=== PATIENT | female | born 2000 | race Caucasian/White ===

== ENCOUNTER 2023-09-27 10:21 | Emergency (ER) | payer OTHER ==
[~2023-09-27] VITALS: Ht 157.5 cm; Wt 87.3 kg
[2023-09-27] MEDS: ACETAMINOPHEN 500 MG TAB PO ONE (11:41)
[2023-09-27 13:06] LABS: BASO % 0.5 % (0.0-1.0); EOS # 0.1 10^3/uL (0.0-0.5); EOS % 1.5 % (0.0-3.0); HEMATOCRIT 37.4 % (36.0-47.0); LYMPH # 1.3 10^3/uL (1.5-5.0); LYMPH % 21.3 % (24.0-44.0); MEAN CORPUSCULAR HEMOGLOBIN 25.1 pg (27.0-33.0); MEAN CORPUSCULAR HGB CONC 32.1 g/dl (32.0-36.5); MEAN CORPUSCULAR VOLUME 78.2 fl (80.0-96.0); MONO # 0.3 10^3/uL (0.0-0.8); MONO % 5.4 % (2.0-8.0); NEUTROPHILS # 4.3 10^3/uL (1.5-8.5); NEUTROPHILS % 71.1 % (36.0-66.0); PLATELET COUNT, AUTOMATED 319 10^3/uL (150-450); RED BLOOD COUNT 4.78 10^6/uL (4.00-5.40); WHITE BLOOD COUNT 6.1 10^3/uL (4.0-10.0)
[2023-09-27 13:26] VITALS: BP 126/77; TEMP 97.8; O2SAT 100
[2023-09-27 13:28] LABS: BLOOD UREA NITROGEN 11 MG/DL (9-23); CALCIUM LEVEL 8.8 MG/DL (8.5-10.1); CARBON DIOXIDE LEVEL 22 MMOL/L (20-31); CHLORIDE LEVEL 110 MMOL/L (98-107); CREATININE FOR GFR 0.69 MG/DL (0.55-1.30); GLUCOSE, FASTING 88 MG/DL (60-100); POTASSIUM SERUM 4.1 MMOL/L (3.5-5.1); SODIUM LEVEL 139 MMOL/L (136-145)
== END 2023-09-27 13:59 | disposition home or self-care (01) ==
LOC: M ED 10:21
DX: M54.50 Low back pain, unspecified (principal); Z88.5 Allergy status to narcotic agent

== ENCOUNTER → 2024-02-03 | Outpatient (REF) | payer OTHER ==
[2024-02-03 20:02] LABS: C REACTIVE PROTEIN QUANTITATIV < 0.40 MG/DL (<1.0)
[2024-02-03 20:04] LABS: FERRITIN 4.7 NG/ML (7.3-270.7); IRON (FE) 32 UG/DL (50-170); PERCENT SATURATION 7.7 % (13.2-45.0); TOTAL IRON BINDING CAPACITY 415 UG/DL (250-425)
== END ==
LOC: M LAB REF 12:15
PROVIDERS: ATTEND Nurse Practitioner Family
DX: R69 Illness, unspecified (principal); E61.1 Iron deficiency

== ENCOUNTER → 2024-04-17 | Outpatient (REF) | payer OTHER ==
[2024-04-17 12:05] LABS: Trichomonas vaginalis (AMP) NOT DETECTED (NEGATIVE)
[2024-04-17 12:28] LABS: GC DNA AMPLIFICATION NEGATIVE (NEGATIVE)
== END ==
LOC: M SFHCWAGY 09:56
PROVIDERS: ATTEND Nurse Practitioner Family
DX: N94.10 Unspecified dyspareunia (principal)

== ENCOUNTER → 2024-08-28 | Outpatient (REF) | payer OTHER ==
[~2024-08-28] MED LIST: DEBL1TAB; HYDR-643; PHOS1TAB3 PO; SERT-141 PO
[2024-08-28 15:19] LABS: FOLATE 20.3 NG/ML (>5.4); THYROID STIMULATING HORMONE 3.513 uIU/ML (0.55-4.78)
== END ==
LOC: M LAB REF 14:11
PROVIDERS: ATTEND Nurse Practitioner Family
DX: R51.9 Headache, unspecified (principal)

== ENCOUNTER → 2024-08-30 | Outpatient (REF) | payer OTHER ==
[2024-08-30 15:53] LABS: APPEARANCE, URINE HAZY (CLEAR); BACTERIA, URINE AUTO NEGATIVE (NEGATIVE); BILIRUBIN, URINE AUTO NEGATIVE (NEGATIVE); BLOOD, URINE BLOOD NEGATIVE (NEGATIVE); COLOR, URINE YELLOW (YELLOW); GLUCOSE, URINE (UA) AUTO NEGATIVE (NEGATIVE); KETONE, URINE AUTO NEGATIVE (NEGATIVE); LEUKOCYTE ESTERASE, URINE AUTO NEGATIVE (NEGATIVE); MUCUS, URINE SMALL (NEGATIVE); NITRITE, URINE AUTO NEGATIVE (NEGATIVE); PROTEIN, URINE AUTO NEGATIVE (NEGATIVE); RBC, URINE AUTO 1 /HPF (0-3); SPECIFIC GRAVITY URINE AUTO 1.015 (1.002-1.035); SQUAMOUS EPITHELIAL CELL UR AU 2 /HPF (0-6); UROBILINOGEN, URINE AUTO 0.2 mg/dL (0.0-2.0); WBC, URINE AUTO 1 /HPF (0-3)
[2024-08-30 16:12] LABS: TOTAL PROTEIN,RANDOM URINE 8.9 MG/DL (0.0-14.0)
[2024-08-30 16:17] LABS: CREATININE,RANDOM URINE 131.5 MG/DL
[2024-08-30 18:26] LABS: BASO # 0.1 10^3/uL (0.0-0.2); EOS # 0.1 10^3/uL (0.0-0.5); EOS % 2.2 % (0.0-3.0); HEMATOCRIT 40.4 % (36.0-47.0); HEMOGLOBIN 13.6 g/dl (12.0-15.5); LYMPH # 1.2 10^3/uL (1.5-5.0); LYMPH % 24.2 % (24.0-44.0); MEAN CORPUSCULAR HEMOGLOBIN 28.6 pg (27.0-33.0); MEAN CORPUSCULAR HGB CONC 33.7 g/dl (32.0-36.5); MEAN CORPUSCULAR VOLUME 85.1 fl (80.0-96.0); MONO # 0.4 10^3/uL (0.0-0.8); MONO % 7.9 % (2.0-8.0); NEUTROPHILS # 3.3 10^3/uL (1.5-8.5); NEUTROPHILS % 64.5 % (36.0-66.0); PLATELET COUNT, AUTOMATED 277 10^3/uL (150-450); RED BLOOD COUNT 4.75 10^6/uL (4.00-5.40); WHITE BLOOD COUNT 5.1 10^3/uL (4.0-10.0)
[2024-08-30 18:30] LABS: C REACTIVE PROTEIN QUANTITATIV < 0.50 MG/DL (<1.0); CPK CREATINE PHOSPHOKINASE 64 U/L (34-145); MAGNESIUM LEVEL 2.1 MG/DL (1.8-2.4); PHOSPHORUS LEVEL 3.6 MG/DL (2.5-4.9)
[2024-08-30 18:33] LABS: ERYTHROCYTE SEDIMENTATION RATE 7 mm/hr (0-20); TOTAL 25(OH) VITAMIN D 15.7 NG/ML (20.0-100.0); VITAMIN B12 LEVEL 804 PG/ML (211-911)
== END ==
LOC: M SFHCRHEU 10:50
PROVIDERS: ATTEND Internal Medicine
DX: R76.8 Other specified abnormal immunological findings in serum (principal); E55.9 Vitamin D deficiency, unspecified; M25.50 Pain in unspecified joint; M79.10 Myalgia, unspecified site

== ENCOUNTER 2024-11-16 08:29 | Emergency (ER) | payer OTHER ==
[~2024-11-16] VITALS: Ht 157.5 cm; Wt 93.2 kg
[2024-11-16 08:32] VITALS: TEMP 98.3
[2024-11-16 10:00] VITALS: BP 122/77; O2SAT 98
[2024-11-16 10:03] LABS: ALT/SGPT 34 U/L (7.0-40); AST/SGOT 63 U/L (<34)
[2024-11-16 11:10] LABS: BASO # 0.0 10^3/uL (0.0-0.2); BASO % 0.6 % (0.0-1.0); EOS # 0.1 10^3/uL (0.0-0.5); EOS % 1.9 % (0.0-3.0); LYMPH # 0.8 10^3/uL (1.5-5.0); LYMPH % 11.5 % (24.0-44.0); MONO # 0.3 10^3/uL (0.0-0.8); MONO % 4.4 % (2.0-8.0); NEUTROPHILS # 5.5 10^3/uL (1.5-8.5); NEUTROPHILS % 81.2 % (36.0-66.0); PLATELET COUNT, AUTOMATED 256 10^3/uL (150-450)
== END 2024-11-16 13:00 | disposition left against medical advice (07) ==
LOC: M ED 08:29
DX: R10.9 Unspecified abdominal pain (principal); D64.9 Anemia, unspecified; F10.10 Alcohol abuse, uncomplicated; Z88.5 Allergy status to narcotic agent; Z79.899 Other long term (current) drug therapy; Z53.9 Procedure and treatment not carried out, unspecified reason